=== PATIENT | male | born 1995 | race African-American/Black ===

== ENCOUNTER 2018-12-22 23:43 | Emergency (ER) | payer BC ==
[~2018-12-22] VITALS: Ht 180.3 cm; Wt 64.0 kg
[2018-12-23] MEDS ORDERED: MAGNESIUM/ALUMINUM HYDROXIDE/SIMETHICONE 30ML UDC PO STA (01:29)
[2018-12-23 01:57] LABS: CHLORIDE 105 mEq/L (98-107)
[2018-12-23 01:58] LABS: CLARITY URINE CLEAR (CLEAR); COLOR URINE YELLOW (YELLOW); KETONES URINE TRACE (NEGATIVE); LEUKOCYTE ESTERASE URINE NEGATIVE (NEGATIVE); NITRITE URINE NEGATIVE (NEGATIVE); OCCULT BLOOD URINE NEGATIVE (NEGATIVE); PROTEIN URINE NEGATIVE (NEGATIVE); SPECIFIC GRAVITY URINE 1.019 (1.005-1.030); UROBILINOGEN URINE 0.2 E.U./dL (0.2-1.0)
[2018-12-23 02:03] LABS: BASOPHILS % 0.7 % (0.0-2.0); EOSINOPHILS % 1.7 % (0.0-5.0); HEMATOCRIT. 45.4 % (42.0-52.0); HEMOGLOBIN. 15.2 g/dL (14.0-18.0); LYMPHOCYTES % 36.7 % (20.0-50.0); MEAN CORPUSCULAR HEMOGLOBIN 31.6 pg (28.0-32.0); MEAN CORPUSCULAR VOLUME 94.6 fL (80.0-94.0); MEAN PLATELET VOLUME 9.4 fl (7.4-10.4); NEUTROPHILS % 52.9 % (40.0-76.0); PLATELET 205 x1000/uL (130-400); RED BLOOD CELL COUNT 4.79 mill/uL (4.7-6.1); RED CELL DISTRIBUTION WIDTH 12.9 % (11.6-14.6)
[2018-12-23 02:07] LABS: INR 1.1; PROTHROMBIN TIME 10.8 sec (9.1-11.1)
[2018-12-23 02:31] VITALS: BP 125/80
== END 2018-12-23 02:32 | disposition home or self-care (01) ==
LOC: ER 12-23 01:01
DX: R10.13 Epigastric pain (principal); R03.0 Elevated blood-pressure reading, without diagnosis of hypertension
CPT/HCPCS: 36415; 99283

== ENCOUNTER 2018-12-25 00:04 | Emergency (ER) | payer BC ==
[~2018-12-25] VITALS: Ht 180.3 cm; Wt 64.0 kg
[2018-12-25 04:26] VITALS: BP 103/53
== END 2018-12-25 06:00 | disposition left against medical advice (07) ==
LOC: ER 00:04
DX: Z53.21 Procedure and treatment not carried out due to patient leaving prior to being seen by health care provider (principal)